=== PATIENT | female | born 1975 | race American Indian/Alaskan Native ===

== ENCOUNTER 2017-10-12 14:36 | Emergency (ER) | payer SELFPAY ==
[2017-10-12 14:48] VITALS: BP 145/88
--- NOTE | 2017-10-12 16:18 | XRay Report ---
FINAL REPORT EXAM: XR HAND 3+V LT HISTORY: fall, left hand and thumb injury unable to bend left thumb TECHNIQUE: Three views left hand Comparison: None FINDINGS: Normal bony mineralization. Mildly questionably subluxed 1st metacarpophalangeal joint without definite fracture identified. No true lateral was performed. Volar dislocation is extremely rare this joint. The IP joint is not seen in lateral projection but shows no definite fracture The remaining hand has an unremarkable appearance. There is no significant degenerative abnormality of the 1st carpometacarpal joint. IMPRESSION: Slight straightening of the 1st metacarpophalangeal joint at the MCP without fracture or dislocation. If there is a concern for an ulnar ligament injury, consider MRI of the left hand. No definite abnormality of the 1st digit IP joint. If there is a concern at the level of the IP joint, recommend a true lateral.
[2017-10-12] MEDS ORDERED: BOOSTRIX IM ONE (16:40)
--- NOTE | 2017-10-12 16:45 | Emergency Department Report ---
HPI - General Chief Complaint: Fall Time Seen by Provider: 10/12/17 16:35 - HPI HPI: 41-year-old AA female, who is a security system administrator, tripped and fell coming out of the [employer] and fell onto her right knee and with an outstretched left hand. She complains of severe left thumb pain at the base of the thumb. She has an abrasion to the right knee and right elbow. She has not up-to-date with tetanus. She did not take anything for her symptoms. Presentation. She denies hitting her head or any loss of consciousness. She has a past medical history of vitiligo, Graves' disease and hypertension and HIV, per the previous records. She is right-hand dominant. ED Past Medical Hx - Past Medical History Previous Medical History?: Yes Hx Hypertension: Yes Hx Kidney Stones: Yes Hx HIV: Yes Additional medical history: vitiligo, Graves disease - Surgical History Past Surgical History?: Yes Additional Surgical History: Right kidney lithotripsy - Social History Smoking Status: Never Smoker Substance Use Type: Alcohol, Prescribed ED Review of Systems ROS: Stated complaint: LEFT THUMB PAIN Other details as noted in HPI Comment: All other systems reviewed and negative Constitutional: denies: chills, fever Eyes: denies: eye pain, eye discharge, vision change ENT: denies: ear pain, throat pain Respiratory: denies: cough, shortness of breath, wheezing Cardiovascular: denies: chest pain, palpitations Gastrointestinal: denies: abdominal pain, nausea, diarrhea Genitourinary: denies: urgency, dysuria, discharge Musculoskeletal: arthralgia. denies: back pain Skin: other (abrasions). denies: rash Neurological: denies: headache, weakness Physical Exam - Physical Exam Vital Signs: Vital Signs 10/12/17 14:42 Temperature 98.1 F Pulse Rate 76 Respiratory 22 Rate Blood Pressure 145/88 O2 Sat by Pulse 98 Oximetry Physical Exam: GENERAL: The patient is well-developed well-nourished. HENT: Normocephalic. Atraumatic. Patient has moist mucous membranes. EYES: Extraocular motions are intact. NECK: Supple. Trachea is midline. CHEST/LUNGS: Clear to auscultation. There is no respiratory distress noted. HEART/CARDIOVASCULAR: Regular. There is no tachycardia. There is no murmur. ABDOMEN: Abdomen is soft, nontender. Patient has normal bowel sounds. There is no abdominal distention. SKIN: Skin is warm and dry. There are noninfected appearing abrasions to the right elbow and the anterior right knee. NEURO: The patient is awake, alert, and oriented. The patient is cooperative. The patient has no focal neurologic deficits. The patient has normal speech and gait. MUSCULOSKELETAL: There is some tenderness to palpation to the right knee. Negative anterior and posterior drawer test. No laxity with valgus or varus stress of the affected right knee. Patient has tenderness to palpation to the base of the left thumb. Cap refill is less than 2 seconds and radial pulse +2 over 4 to the affected left hand/wrist. ED Course Vital Signs 10/12/17 14:42 Temperature 98.1 F Pulse Rate 76 Respiratory 22 Rate Blood Pressure 145/88 O2 Sat by Pulse 98 Oximetry ED Medical Decision Making - Radiology Data Radiology results: image reviewed interpreted by me: X-ray of the left thumb does not show any fracture, dislocation or any other acute process. X-ray of the right knee does not show any fracture, dislocation or any other acute processes. - Medical Decision Making Patient had a trip and fall and comes in with complaint of severe left thumb pain. She also has a complaint of some mild right knee pain. There are some abrasions and she is not up-to-date with her tetanus vaccination so she was given a booster here in the emergency department. X-ray of the left thumb did not show any fracture or dislocation but she was placed in a thumb spica since we are unable to see if there is any ligament or tendon damage. X-ray of the right knee did not show any fracture or dislocation as well. She was ambulatory in the emergency department and appeared stable. She was given a referral for an orthopedist and instructed to see her primary care physician. She will return to the emergency Department with any worsening of her symptoms or any acute distress. - Differential Diagnosis fracture, dislocation, tendon rupture, ligament tear, contusion, sprain Critical Care Time: No Critical care attestation.: If time is entered above; I have spent that time in minutes in the direct care of this critically ill patient, excluding procedure time. ED Disposition Clinical Impression: Pain of left thumb, Abrasions of multiple sites Right knee pain Qualifiers: Chronicity: acute Qualified Code(s): M25.561 - Pain in right knee Fall Qualifiers: Encounter type: initial encounter Qualified Code(s): W19.XXXA - Unspecified fall, initial encounter Disposition: TO HOME OR SELFCARE Is pt being admited?: No Condition: Stable Instructions: Finger Sprain (ED), Knee Pain (ED), Arthralgia (ED) Additional Instructions: Please follow up with a primary care physician. I have given you a referral for 2 different orthopedic groups to follow-up regarding your knee and thumb pain. The abrasions can be cleaned with soap and water but should then be kept dry. Return to the emergency Department with any worsening of your symptoms or any acute distress. Referrals: PRIMARY CAREMD [Primary Care Provider] - 3-5 Days PARMINDER FORREST MD [Staff Physician] - 3-5 Days [facility] [Provider Group] - 3-5 Days Forms: Work/School Release Form(ED) Time of Disposition: 17:10
--- NOTE | 2017-10-12 18:52 | XRay Report ---
FINAL REPORT EXAM: XR KNEE 3V RT HISTORY: right knee pain TECHNIQUE: Three views right knee Comparison: None FINDINGS: Normal bony mineralization. No acute fracture or dislocation. Medial soft tissue reticulation. Small suprapatellar bursal effusion. Mild irregularity of the inferior cortex of the lateral tibial plateau. IMPRESSION: No definite acute fracture or dislocation. Mild irregularity of the inferior cortex of the lateral tibial plateau. This appears to be related to positioning rather than a true fracture. Medial soft tissue reticulation.
== END 2017-10-12 17:13 | disposition home or self-care (01) ==
LOC: ED 14:36
DX: S80.211A Abrasion, right knee, initial encounter (principal); S50.311A Abrasion of right elbow, initial encounter; M25.561 Pain in right knee; M79.645 Pain in left finger(s); I10 Essential (primary) hypertension; E05.00 Thyrotoxicosis with diffuse goiter without thyrotoxic crisis or storm; Z87.442 Personal history of urinary calculi; W18.30XA Fall on same level, unspecified, initial encounter; Y93.89 Activity, other specified; Y99.8 Other external cause status; Y92.89 Other specified places as the place of occurrence of the external cause
CPT/HCPCS: 90471; 90715

== ENCOUNTER 2019-08-12 10:32 | Outpatient (CLI) | payer OTHER ==
--- NOTE | 2019-08-12 12:59 | Ultrasound Report ---
ULTRASOUND-GUIDED CORE NEEDLE BIOPSY RIGHT BREAST WITH CLIP PLACEMENT INDICATION: 07/14/2019. FINDINGS: Informed consent was obtained. The lesion within the right breast at the 8:00 position, 5 cm from the nipple, was identified with ultrasound. Of note, this was previously labeled as 6:00/7:00 on the out side imaging. However this appears to be at the 8:00 position when the patient was scanned during pre procedure evaluation. The overlying skin was cleansed with chloro prep and local anesthesia was obtai jasmine with a 1% lidocaine solution. Under ultrasound guidance a 14-gauge spring loaded core biopsy need le was advanced to the lesion. A total of 5 core samples were obtained. A U-shaped biopsy marker was placed to rakel the site of the biopsy. Specimen samples were placed in formalin and sent to pathology for analysis. Patient tolerated the procedure well and no immediate complications were identified. IMPRESSION: Technically successful ultrasound guided biopsy of right breast mass at the 8:00 position with accura te placement of a U shaped biopsy marker. Patient is scheduled for follow-up appointment with her ordering clinician on 08/20 to review the path ology results. An addendum will be added to this report with pathology results at a later date. Signer Name: Michael Olivares MD Signed: 08/12/2019 12:55 PM Workstation Name: [id number]
--- NOTE | 2019-08-12 13:03 | Mammography Report ---
RIGHT DIAGNOSTIC MAMMOGRAM INDICATION: Status post right breast biopsy. COMPARISON: Ultrasound images performed earlier the same day and 07/14/2019. FINDINGS: Right CC and ML mammograms document placement of a U shaped biopsy marker at the site of previously n oted right breast 8:00 mass. The biopsy marker appears appropriately positioned. Expected mild post p rocedural changes are noted. IMPRESSION: Status post biopsy of right breast mass at the 8:00 position with accurate placement of U shaped biop sy marker. Follow up recommendation: No recall Postbiopsy imaging. Signer Name: Michael Olivares MD Signed: 08/12/2019 12:58 PM Workstation Name: [id number]
== END 2019-08-12 10:33 | disposition home or self-care (01) ==
LOC: SPVWC 10:32
PROVIDERS: ATTEND Surgery
DX: N63.13 Unspecified lump in the right breast, lower outer quadrant (principal); N62 Hypertrophy of breast; N60.31 Fibrosclerosis of right breast; I10 Essential (primary) hypertension; Z87.442 Personal history of urinary calculi; Z88.2 Allergy status to sulfonamides
CPT/HCPCS: 88305

== ENCOUNTER 2020-04-05 13:48 | Outpatient (CLI) | payer OTHER ==
--- NOTE | 2020-04-05 14:36 | Mammography Report ---
DIGITAL DIAGNOSTIC MAMMOGRAM WITH CAD CONVENTIONAL, 04/05/2020 CLINICAL INFORMATION / INDICATION: Follow-up post right breast biopsy. TECHNIQUE: Digital bilateral mammographic imaging was performed. This examination was interpreted with the benefit of Computer-aided Detection analysis. COMPARISON: Right breast mammogram 07/14/2019 and 08/12/2019. FINDINGS: Breast Density: The breasts are almost entirely fatty. No dominant mass, suspicious calcifications or architectural distortion in the left breast. A small benign-appearing nodular density in the right breast inferolaterally is again identified and unchanged. Postbiopsy changes have improved. A right biopsy clip is again noted. No new abnormality i s seen. IMPRESSION: No mammographic evidence of malignancy. Follow up recommendation: Routine yearly BI-RADS Category 2: Benign. A "normal" or negative report should not discourage follow up or biopsy of a clinically significant f inding. A written summary of these findings will be mailed to the patient. The patient will be entered into a mammography reporting system which will generate a reminder letter for the patient's next appointmen t at the appropriate interval. According to the [employer], yearly mammograms are recommended starting at age 40 and continuing as long as a woman is in good health. Breast MRI is recommended for women with an azeem roximately 20-25% or greater lifetime risk of breast cancer, including women with a strong family his tory of breast or ovarian cancer and women who have been treated for Hodgkin's disease. Signer Name: aMrtin Hinkle MD Signed: 04/05/2020 2:32 PM Workstation Name: [email or web address]
--- NOTE | 2020-04-05 15:42 | Ultrasound Report ---
ULTRASOUND BREAST RIGHT LIMITED, 04/05/2020 CLINICAL INFORMATION / INDICATION: Short-term follow-up post right nodule biopsy. TECHNIQUE: Targeted ultrasound evaluation was performed of the area of interest. COMPARISON: 08/12/19. FINDINGS: The previously described circumscribed ovoid solid nodule at the 8:00 position 5 cm from the nipple i s again identified. The nodule measures 1.4 cm in greatest dimension on the current study compared to 1.5 cm previously. There is an associated biopsy clip now present. There is a small adjacent hematom a/seroma measuring approximately 4.5 mm. IMPRESSION: Postbiopsy changes involving the previously described probably benign right breast nodule . Follow up recommendation: Routine yearly BI-RADS Category 2: Benign. A normal or "negative" report should not preclude biopsy or follow-up of a clinically suspicious find ing. Signer Name: Martin Hinkle MD Signed: 04/05/2020 3:38 PM Workstation Name: [id number]
== END 2020-04-05 13:49 | disposition home or self-care (01) ==
LOC: SPVWC 13:48
PROVIDERS: ATTEND Surgery
DX: N63.10 Unspecified lump in the right breast, unspecified quadrant (principal); R92.2 Inconclusive mammogram
CPT/HCPCS: 77066